=== PATIENT | female | born 1985 | race Caucasian/White ===

== ENCOUNTER 2018-11-08 18:10 | Outpatient (REF) | payer MEDICAID, SELFPAY ==
--- NOTE | 2018-11-08 17:00 | ENDO_PTH ---
PATIENT: EDITH COVINGTON LOC: [facility] U#:[id number] AGE/SX: 33/F ROOM: RE11/08/[address]: Jourdan Conway MD : 1985 BED: DIS: 11/08/2018 SPEC #: [id number] RECD: 11/08/18 18:21 STATUS: ANABEL REChristine #: [id number] RADHA: 11/08/18 17:[address]: Jourdan Conway DEPT: Surgical Specimen RECD BY: Daisy Rosen Tissues: 1 - ENDOCERVICAL BX/CURRETTE 2 - CERVICAL BIOPSY Procedures: GROSS AND MICRO LEVEL 4 Comments: [id number]
--- NOTE | 2018-11-08 17:00 | PAPFT_PTH ---
PATIENT: EDITH COVINGTON LOC: [facility] U#:[id number] AGE/SX: 33/F ROOM: RE11/08/[address]: Jourdan Conway MD : 1985 BED: DIS: 11/08/2018 SPEC #: [id number] RECD: 11/08/18 18:28 STATUS: ANABEL REChristine #: [id number] RADHA: 11/08/18 17:[address]: Jourdan Conway DEPT: [facility] Cytology RECD BY: Daisy Rosen Tissues: 1 - CX/ENDOCX FOR PAP SMEARS Procedures: PAP THIN PREP/[facility] Screening HPV DNA PROBE Comments: [id number] (CHLAMYDIA/GC)
[2018-11-09 12:59] LABS: Chlamydia Result Negative; GC Result Negative; Specimen Description SEE COMMENTS
== END 2018-11-08 18:30 ==
LOC: LBN 18:10
PROVIDERS: PCP Obstetrics & Gynecology; Visit Provider Obstetrics & Gynecology
DX: N88.8 Other specified noninflammatory disorders of cervix uteri (principal); Z11.3 Encounter for screening for infections with a predominantly sexual mode of transmission; Z12.4 Encounter for screening for malignant neoplasm of cervix; Z11.51 Encounter for screening for human papillomavirus (HPV)
CPT/HCPCS: 87491; 87591; 88142; 88305; 87624